=== PATIENT | male | born 1960 | race African-American/Black ===

== ENCOUNTER 2023-10-28 23:15 | Emergency (ER) | payer SELFPAY ==
[~2023-10-28] VITALS: Ht 185.4 cm; Wt 96.0 kg
[2023-10-28 23:26] VITALS: BP 133/78; PULSE 71; RESP 18; TEMP 98.4; O2SAT 100
== END 2023-10-29 00:11 | disposition left against medical advice (07) ==
LOC: ER 23:15
DX: F10.129 Alcohol abuse with intoxication, unspecified (principal); Z53.21 Procedure and treatment not carried out due to patient leaving prior to being seen by health care provider; Y90.9 Presence of alcohol in blood, level not specified
CPT/HCPCS: 99281